=== PATIENT | male | born 1960 | race Caucasian/White ===

== ENCOUNTER 2020-02-18 15:02 | Outpatient (REF) | payer OTHER, SELFPAY ==
--- NOTE | 2020-02-18 17:29 | PFT_ITS ---
Forced vital capacity and FEV1 are normal, however FEV1 over FVC ratio is moderately decreased. [id number] and MVV are also moderately decreased. Post bronchodilator therapy, there is no significant response. Total lung capacity normal. Residual volume moderately increased. Diffusion capacity is slightly decreased. CONCLUSION: [id number] degree of obstructive airway disorder. No significant response to bronchodilator therapy. There is evidence of moderate amount of air trapping. Clinical correlation recommended. MD MATTHIEU Simon/RENEE / [id number]
== END 2020-02-18 15:03 | disposition home or self-care (01) ==
LOC: HO.RESP 15:02
PROVIDERS: Visit Provider Internal Medicine
DX: F17.200 Nicotine dependence, unspecified, uncomplicated (principal)
CPT/HCPCS: 94060; 94727; 94729